=== PATIENT | male | born 1975 | race Caucasian/White ===

== ENCOUNTER → 2017-03-18 | Outpatient (CLI) | payer BC ==
[2014-07-02 20:10] VITALS: BP 168/108
[~2017-03-18] MED LIST: AMLO5TAB2 PO
--- NOTE | 2017-03-18 10:07 | KCIC ---
PROCEDURE Abdomen ultrasound HISTORY Right upper quadrant pain COMPARISON None FINDINGS Multiple sonographic images of the abdomen are submitted. Exam is limited due to soft tissue attenuation. Pancreas is not well visualized due to bowel gas. There is diffuse prominent coarsening of echotexture of the liver, poor visualization of underlying vascular structures and limited evaluation for underlying hepatic lesion. Right lobe of the liver measured 15.5 centimeters longitudinal. No free fluid is demonstrated. Gallbladder is present without obvious intraluminal abnormality, wall thickening, pericholecystic fluid. Common bile duct is within normal limits at 0.5 cm. Right kidney measured 11.7 x 7.1 x 6.5 centimeters, no hydronephrosis. There is a hypoechoic lesion of the midpole right kidney up to 3.7 centimeters in greatest dimension with increased through transmission compatible with a cyst. IMPRESSION Exam is limited due to bowel gas and attenuation by the soft tissues. There is diffuse hepatic steatosis. No significant abnormality is demonstrated of the gallbladder. There is right renal cyst. Electronically signed by: Kaiser Esteban MD (March 18, 2017 10:06:45)
== END | disposition home or self-care (01) ==
LOC: KCIC US 07:55
PROVIDERS: ATTEND Family Medicine
DX: K76.0 Fatty (change of) liver, not elsewhere classified (principal); N28.1 Cyst of kidney, acquired
CPT/HCPCS: 76705

== ENCOUNTER → 2017-04-14 | Outpatient (CLI) | payer BC ==
[2014-07-02 20:10] VITALS: BP 168/108
[~2017-04-14] VITALS: Ht 185.4 cm; Wt 127.0 kg
[~2017-04-14] MED LIST changes: +NORMAL SALINE IV ONE; +OMEP20CA9 PO; +SINCALIDE IV ONE
--- NOTE | 2017-04-14 10:38 | RAD ---
Indication abdominal pain for 2 months. Hepatobiliary scan was performed. 5.5 mCi of technetium labeled Choletec was administered. 2.5 mcg of CCK was diluted in saline and administered over several minutes. Following the CCK administration a gallbladder ejection fraction calculation was made. There is normal uptake of the radiopharmaceutical in the liver. Activity is seen early within the gallbladder. Following the Kinevac administration the estimated gallbladder ejection fraction is approximately 85%. This is a normal value. IMPRESSION: Normal study
== END | disposition home or self-care (01) ==
LOC: NM 07:11
PROVIDERS: ATTEND Internal Medicine Gastroenterology
DX: R10.13 Epigastric pain (principal); I10 Essential (primary) hypertension
CPT/HCPCS: 78226; 96374; 96375; A9537; J2805